=== PATIENT | female | born 1995 | race Caucasian/White ===

== ENCOUNTER 2020-06-21 09:48 | Emergency (ER) | payer OTHER, SELFPAY ==
[2020-06-21 09:56] VITALS: BP 129/65; PULSE 73; RESP 12; TEMP 36.3; O2SAT 100
--- NOTE | 2020-06-21 10:00 | ED.FEMALEGU ---
HPI - Female Genitourinary General Chief complaint: Urogenital-Female Stated complaint: UTI Time Seen by Provider: 06/21/20 09:50 Source: patient Mode of arrival: Ambulatory Limitations: no limitations History of Present Illness HPI Narrative: 25-year-old female smoker with history of frequent urinary tract infections presents with friend and chief complaint of a few days her classic urinary symptoms. She has burning, frequency and urgency with urination and some mild left flank pain. She denies any fever, chills nor vomiting. She has no vaginal bleeding or discharge. MD Complaint: dysuria and UTI Onset (ago): day(s) Location: suprapubic Severity: mild Quality: Burning Duration: constant Exacerbating factors: urination Urinary symptoms: Dysuria, Frequency and Urgency Patient : No Related Data Previous Rx's Medication Instructions Recorded cephalexin 500 mg PO BID #10 cap 06/21/20 fluconazole 150 mg PO Q3D #2 tab 06/21/20 Allergies Allergy/AdvReac Type Severity Reaction Status Date / Time No Known Drug Allergies Allergy Verified 06/21/20 09:58 Review of Systems Constitutional Constitutional: Denies chills, Denies fatigue, Denies fever(s), Denies frequent falls, Denies lethargy and Denies weakness Eyes Eyes: Denies change in vision, Denies eye discharge, Denies irritation and Denies loss of vision ENT Ears, Nose, Mouth, and Throat: Denies change in voice, Denies dizziness, Denies neck pain, Denies sore throat and Denies throat swelling Cardiovascular Cardiovascular: Denies chest pain, Denies irregular heart rhythm, Denies lightheadedness, Denies palpitations, Denies dyspnea, Denies dyspnea on exertion and Denies orthopnea Respiratory Respiratory: Denies cough, Denies dyspnea, Denies dyspnea on exertion and Denies wheezing Gastrointestinal Gastrointestinal: Denies abdominal pain, Denies change in bowel habits, Denies diarrhea, Denies nausea and Denies vomiting Genitourinary Genitourinary: Reports dysuria and Reports flank pain Genitourinary: Reports dysuria and Reports flank pain Musculoskeletal Musculoskeletal: Denies neck pain and Denies numbness Integumentary/Breasts Skin/Breast: Denies pruritus, Denies erythema, Denies rash and Denies wounds Neurologic Neurologic: Denies behavioral changes, Denies confusion, Denies dizziness, Denies frequent falls, Denies loss of vision, Denies numbness and Denies weakness Psychiatric Psychiatric: Denies anxiety, Denies behavioral changes, Denies confusion, Denies depression, Denies homicidal ideation and Denies suicidal ideation Endocrine Endocrine: Denies fatigue, Denies flushing and Denies palpitations Hematologic/Lymphatic Hematologic/Lymphatic: Denies easy bruising Allergic/Immunologic Allergic/Immunologic: Denies urticaria, Denies throat swelling and Denies wheezing Patient History alcohol intake frequency: a few times a month Substance Use Type: does not use Exam Narrative Exam Narrative: GEN: AOx3 and in mild distress, well-appearing and in no significant distress EYES: Pupils are equal, round, and reactive to light and accommodation. Extraoccular muscles are intact bilaterally. There is no subconjunctival hemorrhage or exudate. CHEST: Lungs are clear to auscultation bilaterally and free of wheezes, rales, or rhonchi. Heart rate is regular rhythm, there are no murmurs, clicks, rubs, or gallops. There is no chest wall tenderness. ABD: Abdomen is soft and has minimal suprapubic tenderness There is no guarding or rebound. Bowel sounds are normal in all 4 quadrants. There is no mass or organomegaly. EXT: Full painless ROM of all extremities with no loss of sensation or strength. BACK: Mild left CVA tenderness, no saddle anesthesia or lower extremity weakness SKIN: Warm, pink, and dry. No erythema or rash Initial Vital Signs Initial Vital Signs: Vital Signs Temperature 97.4 F L 06/21/20 09:56 Pulse Rate 73 06/21/20 09:56 Respiratory Rate 12 06/21/20 09:56 Blood Pressure 129/65 06/21/20 09:56 Pulse Oximetry 100 06/21/20 09:56 Course Orders Ordered: ED Orders 06/21/20 09:58 Urinalysis and Microscopic Stat Vital Signs Vital signs: Vital Signs - 8 hr 06/21/20 09:56 Temperature 97.4 F L Pulse Rate 73 Respiratory Rate 12 Blood Pressure 129/65 Pulse Oximetry 100 MDM - Female Genitourinary Lab Data Labs: Lab Results 06/21/20 Range/Units 10:02 Urine Color [place] Urine Appearance Clear Urine pH TNP Ur Specific [place] TNP Urine Protein TNP Urine Glucose (UA) TNP Urine Ketones TNP Urine Occult Blood TNP Urine Nitrate TNP Urine Bilirubin TNP Urine Urobilinogen TNP Ur Leukocyte Esterase TNP Urine RBC None seen (0-5/HPF) Urine WBC 5-10/hpf H (0-5/HPF) Ur Squamous Epith Cells 1-5 /hpf (0-5/HPF) Urine Bacteria None seen (None) Ur Culture Indicated? Specimen cultured MDM Narrative Medical decision making narrative: Patient with classic urinary symptoms, no vaginal discharge. No signs of sepsis, pain is well tolerated and she is tolerating oral hydration without difficulty. Return precautions given and questions answered to her apparent satisfaction Discharge Plan Departure Patient Disposition: Home Clinical Impression: Urinary tract infection Qualifiers: Urinary tract infection type: site unspecified Hematuria presence: without hematuria Qualified Code(s): N39.0 - Urinary tract infection, site not specified Instructions: DI for Urinary Tract Infection (UTI) Activity Restrictions/Additional Instructions: *You have been diagnosed with [urinary tract infection] *What to do: *Please continue to take your regular medications as directed. [x ] New medication prescriptions sent to your pharmacy: [[facility]] [ ] New medication written as a paper prescription [ ] No new medications given *Please follow up with your primary care provider in 2-3 days, call for an appointment. Let them know you were seen in the Emergency Department and that we ask that you be seen in follow up. We will electronically transmit a record of today's note if your PCP is in our system *If you do not have a primary care provider please contact the [facility] Resource line at [phone]. They will ask some questions about your medical history and help get you set up with a doctor in the community. *Return to Emergency Department if you should have any new, worsening or concerning symptoms, such as [fever greater than 101 F, shaking chills, worsening pain, persistent vomiting or other bothersome symptoms] Prescriptions: New fluconazole 150 mg tablet 150 mg PO Q3D Qty: 2 RF: 0 cephalexin 500 mg capsule 500 mg PO BID Qty: 10 RF: 0
[2020-06-21 10:04] LABS: Bacteria Urine None Seen; RBC Urine None Seen (0-5/HPF)
[2020-06-21 10:07] LABS: Appearance Urine UA CLEAR; Color Urine UA ORANGE
[2020-06-21 10:13] LABS: Culture Indicated Urine Specimen Cultured; Squamous Epithelial Cell Urine 1-5 /HPF (0-5/HPF); WBC Urine 5-10/HPF (0-5/HPF)
== END 2020-06-21 10:28 | disposition home or self-care (01) ==
PROVIDERS: Emergency Provider Emergency Medicine
DX: N39.0 Urinary tract infection, site not specified (principal)
CPT/HCPCS: 81001; 87077; 87086; 87186; 99281; 99282

== ENCOUNTER 2022-07-15 09:22 | Day surgery (SDC) | payer OTHER, SELFPAY ==
[2022-07-13 07:55] VITALS: BMI 29.1
--- NOTE | 2022-07-15 10:05 | PM.PREOP ---
Pre-operative Note Interval Note History & Physical reviewed/Exam performed by Physician: Yes Changes to H&P: No
--- NOTE | 2022-07-15 10:06 | P.HP_ITS ---
History of Present Illness History of Present Illness Date Patient Seen: 07/15/22 Time Patient Seen: 10:06 Chief complaint: Tonsillectomy/Adenoidectomy Narrative: 27-year-old female last seen in clinic 04/26/2022 presents for tonsillectomy and probable adenoidectomy, no recent cough cold or fever. Indications are chronic tonsillitis tonsil stones halitosis upper airway obstruction and dysphagia. No other health changes. [facility], [facility] Medical History Chronic tonsillitis Other dysphagia Respiratory obstruction Tonsil stone Social History Smoking Status: Former smoker alcohol intake: current Meds Home Medications and Allergies Home Medications Medication Instructions Recorded Confirmed Type cephalexin 500 mg capsule 500 mg PO BID #10 caps 06/21/20 Rx fluconazole 150 mg tablet 150 mg PO Q3D 2 doses #2 tabs 06/21/20 Rx Allergies Allergy/AdvReac Type Severity Reaction Status Date / Time No Known Drug Allergies Allergy Verified 06/21/20 09:58 Review of Systems Review of Systems Narrative: Negative except as listed in the HPI Exam Narrative Exam Narrative: Well-developed well-nourished, heart regular rate and rhythm without murmur, lungs clear to auscultation bilaterally Assessment & Plan Assessment & Plan narrative: Assessment: Chronic tonsillitis with tonsil stones, halitosis, upper airway obstruction, dysphagia Plan: Following discussion of the material risks benefits complications and alternatives, the patient elected to proceed.
--- NOTE | 2022-07-15 10:07 | PM.OP.1 ---
Operative Date/Time/Diagnoses Date of procedure: 07/15/22 Time of procedure: 11:44 Pre-op diagnosis: Chronic tonsillitis with tonsil stones, halitosis, upper airway obstruction, dysphagia Post-op diagnosis: same Procedure & Clinicians Procedure: Tonsillectomy Same procedure as scheduled: Yes Indications: 27 Year old with the above diagnoses incompletely managed with medical therapy presents for the above procedure. Following discussion of the material risks benefits complications and alternatives, the parents elected to proceed. Surgeon: Eulalio Jordan Click Yes if Unassisted: Yes Anesthesia Type: General and Local Operative Notes Findings: Intact palate, single uvula, 2 to 3+ cryptic tonsils, no adenoids Procedure in detail: Following identification and confirmation of consent the patient was brought to the operating room suite and placed in the supine position. General endotracheal anesthesia was administered. A head wrap, shoulder roll, and mouth gag were placed and a red rubber catheter was inserted through the nostril and out the mouth to retract the soft palate. There was no adenoid tissue present. The left tonsil was retracted medially and suction electrocautery on a setting of 30 was used to dissect the tonsil in a subcapsular plane, followed by hemostasis with the same. This process was repeated on the right side with identical findings. The tonsillar fossae were superficially infiltrated bilaterally with 2% lidocaine 1 100,000 epinephrine. Mouth gag and rubber catheter were removed and the patient was extubated in the operating room and taken to the recovery room in stable condition without known complication. Complications: none Post-operative Condition: stable Disposition: same day surgery Plan for aftercare: Push fluids, alternate Tylenol and Advil every 3 hours for baseline pain control, oxycodone for breakthrough pain. Soft diet 2 full weeks, no heavy lifting or straining 2 weeks.
[2022-07-15 10:17] VITALS: BP 122/76; PULSE 57; RESP 16; TEMP 36.4; O2SAT 100; BMI 26.6
--- NOTE | 2022-07-15 11:36 | SUR.OPER ---
Supine on padded OR bed, head on pillow, right arm tucked, left arm secured on padded arm board at <90 degrees abduction, legs uncrossed, safety belt at thigh, tape over blanket over lower legs.
[2022-07-15 11:54] VITALS: BP 123/76; PULSE 73; RESP 17; TEMP 36.2; O2SAT 96
[2022-07-15 11:59] VITALS: BP 119/61; PULSE 65; RESP 14; O2SAT 98
[2022-07-15] MEDS: OXYCODONE IR 5 MG TABLET PO (12:07)
[2022-07-15 12:08] VITALS: BP 119/65; PULSE 52; RESP 14; O2SAT 99
[2022-07-15 12:26] VITALS: BP 122/76; PULSE 57; RESP 16; TEMP 36.2; O2SAT 100
== END 2022-07-15 12:30 | disposition home or self-care (01) ==
PROVIDERS: PCP Preventive Medicine Aerospace Medicine; Referring Provider Otolaryngology; Visit Provider Otolaryngology
PROC: (CPT 42826; principal; 2022-07-15 10:45)
DX: J35.01 Chronic tonsillitis (principal); J35.8 Other chronic diseases of tonsils and adenoids; J98.8 Other specified respiratory disorders
CPT/HCPCS: 42826; J1100; J2250; J2405; J2704; J3010